=== PATIENT | female | born 1955 | race American Indian/Alaskan Native ===

== ENCOUNTER 2021-01-28 20:36 | Emergency (ER) | payer MEDICARE ==
[2021-01-28 21:24] VITALS: BP 178/72
--- NOTE | 2021-01-28 21:42 | Emergency Department Report ---
ED Altered Mental Status HPI - General Chief Complaint: Altered Mental Status Stated Complaint: MH PUI?: No Time Seen by Provider: 01/28/21 21:37 Source: patient, EMS Mode of arrival: Stretcher Limitations: No Limitations - History of Present Illness Initial Comments: Patient is a 65-year-old female who presents emergency room for mental evaluation. Patient states that her [facility] sent to her to be checked out and evaluated. Patient is alert and oriented x3. Patient answers questions appropriately. Patient denies pain. Patient denies any complaints. Patient denies dysuria. Patient denies fever and chills. Patient denies suicidal and homicidal ideations. Patient denies wanting to hurt anybody. Patient denies hallucinations. Patient states sometimes people there just aggravated but she has never been violent with anybody. Patient denies recent travel. Patient denies recent international travel. Lisset ent denies exposure to the novel coronavirus. Patient denies sick contacts. Patient denies fever and chills. Patient denies cough. Patient denies diarrhea. Patient denies coming in contact with anybody with symptoms of the novel coronavirus. Patient was sent here by EMS from a local penitentiary, [facility]. Report received from EMS. EMS states that per staff at [facility] the patient has been more agitated and forgetful. EMS states that the patient has been refusing meds. EMS states that the patient has not had any violence towards or harmed another patient or staff member. EMS states the patient has been calm the entire time that the patient has been with them. EMS states that the patient's blood sugar was 59 and they gave her oral glucose. EMS states the patient has not eaten today. Patient states that she has an appetite. -: Gradual Consistency of Symptoms: constant Associated Symptoms: denies: chest pain, cough, diaphoresis, fever/chills, headaches, loss of appetite, malaise, nausea/vomiting, rash, seizure, syncope, weakness, foul smelling urine, difficulty walking, diarrhea, incontinence Treatments Prior to Arrival: glucose - Related Data Allergies Allergy/AdvReac Type Severity Reaction Status Date / Time No Known Allergies Allergy Unverified 01/28/21 21:43 ED Review of Systems ROS: Stated complaint: MH Other details as noted in HPI Constitutional: denies: chills, fever Eyes: denies: eye pain, eye discharge, vision change ENT: denies: ear pain, throat pain Respiratory: denies: cough, shortness of breath, wheezing Cardiovascular: denies: chest pain, palpitations Endocrine: no symptoms reported Gastrointestinal: denies: abdominal pain, nausea, diarrhea Genitourinary: denies: urgency, dysuria, discharge Musculoskeletal: denies: back pain, joint swelling, arthralgia Skin: denies: rash, lesions Neurological: denies: headache, weakness, paresthesias Psychiatric: denies: anxiety, depression, auditory hallucinations, visual hallucinations, homicidal thoughts, suicidal thoughts Hematological/Lymphatic: denies: easy bleeding, easy bruising ED Past Medical Hx - Past Medical History Previous Medical History?: Yes Hx Hypertension: Yes - Surgical History Past Surgical History?: Yes - Family History Family history: no significant - Social History Smoking Status: Never Smoker Substance Use Type: None ED Physical Exam - General Limitations: No Limitations General appearance: alert, in no apparent distress - Head Head exam: Present: atraumatic, normocephalic - Eye Eye exam: Present: normal appearance, PERRL Pupils: Present: normal accommodation - ENT ENT exam: Present: mucous membranes moist - Neck Neck exam: Present: normal inspection - Respiratory Respiratory exam: Present: normal lung sounds bilaterally. Absent: respiratory distress, wheezes, rales - Cardiovascular Cardiovascular Exam: Present: regular rate, normal rhythm. Absent: systolic mur mur, diastolic murmur, rubs, gallop - GI/Abdominal GI/Abdominal exam: Present: soft, normal bowel sounds. Absent: distended, tenderness, guarding - Extremities Exam Extremities exam: Present: normal inspection - Back Exam Back exam: Present: normal inspection - Neurological Exam Neurological exam: Present: alert, oriented X3 - Psychiatric Psychiatric exam: Present: normal affect, normal mood. Absent: homicidal ideation, suicidal ideation - Skin Skin exam: Present: warm, dry, intact, normal color. Absent: rash - Assessment Assessment Interval: Baseline - Level of Consciousness 1a. Level of Consciousness: alert/keenly responsive - LOC Questions 1b. LOC Questions: answers both correctly - LOC Command 1c. LOC Commands: performs tasks correctly - Best Gaze 2. Best Gaze: normal - Visual 3. Visual: no visual loss - Facial Palsy 4. Facial Palsy: normal symmetrical movement - Motor Arm 5a. Motor Arm Left: no drift 5b. Motor Arm Right: no drift - Motor Leg 6a. Motor Leg Left: no drift 6b. Motor Leg Right: no drift - Limb Ataxia 7. Limb Ataxia: absent - Sensory 8. Sensory: normal - Best Language 9. Best Language: no aphasia - Dysarthria 10. Dysarthria: normal - Extinction and Inattention 11. Extinction/Inattention: no abnormality - Scoring Total Score: 0 Stroke Severity: No Stroke Symptoms ED Course Vital Signs 01/28/21 21:18 Temperature 98.5 F Pulse Rate 78 Respiratory 18 Rate Blood Pressure 178/72 [Right] O2 Sat by Pulse 100 Oximetry - Reevaluation(s) Reevaluation #1: Patient tolerating p.o. intake. Patient states she is feeling fine. We will recheck the patient's blood sugar. 01/28/21 21:48 Reevaluation #2: Patient states she does not want her sugar checked. Patient states that she does not want anything done. Patient dates she is ready to go back home. Patient has the right to refuse care. Patient is alert and oriented x4. Patient signed AMA form. I discussed risk with patient. Patient voiced understanding of the risk. Even though the patient is leaving against the hospital AGAINST MEDICAL ADVICE, Patient will be given a formal discharge. Patient given discharge instructions. Patient voiced understanding of discharge instructions. 01/28/21 21:51 01/28/21 21:59 - Medical Decision Making Patient is a 65-year-old female that presents emergency room with no complaints. Patient states she was sent here to be evaluated by her [facility]. [facility] called EMS to transport the patient here for mental health evaluation. EMS states the patient has been calm the entire time. EMS states that the penitentiary stated that she has been agitated and refusing meds. On exam, the patient has a normal neuro exam. Patient is alert and oriented x4. Patient refused any work-up. Patient is of sound mind and body. Patient is calm. Patient refused further work-up. I discussed the risk with the patient. Patient voiced understanding of the risk. Patient signed AMA form. Patient denies suicidal homicidal ideation. Patient for a 1013. Patient will be discharged back to her penitentiary. A full work-up was not done because the patient refused. Patient voiced understanding of the risk. AMA form signed. Patient will be sent back to her penitentiary. Given that the patient is leaving his medical advice, a formal discharge was given to the patient. - Differential Diagnosis Mental health evaluation, confusion, altered status, dementia Critical care attestation.: If time is entered above; I have spent that time in minutes in the direct care of this critically ill patient, excluding procedure time. ED Disposition Clinical Impression: Dementia Qualifiers: Dementia type: unspecified type Dementia behavioral disturbance: without behavioral disturbance Qualified Code(s): F03.90 - Unspecified dementia without behavioral disturbance Hypertension Qualifiers: Hypertension type: unspecified Qualified Code(s): I10 - Essential (primary) hypertension Disposition: 07 LEFT AGAINST MEDICAL ADVICE Is pt being admited?: No Does the pt Need Aspirin: No Condition: Stable Instructions: Hypertension (ED), Dementia Caregiver Guide, Preventing Hypertension, Hypertension, Adult, [id number] Additional Instructions: Patient to be sent back to her [facility]. Patient to follow-up with primary care in 2 to 3 days. Patient to increase water. Patient to continue all medications. Patient to return to the ER if condition worsens, changes or new symptoms arise. Time of Disposition: 22:36
== END 2021-01-29 08:00 | disposition left against medical advice (07) ==
LOC: ED 20:36
DX: F03.90 Unspecified dementia, unspecified severity, without behavioral disturbance, psychotic disturbance, mood disturbance, and anxiety (principal); I10 Essential (primary) hypertension; Z98.890 Other specified postprocedural states
CPT/HCPCS: 99283

== ENCOUNTER 2021-10-14 14:32 | Emergency (ER) | payer MEDICARE ==
[2021-10-14] MEDS ORDERED: hydroCHLOROthiazide 25 MG TAB PO ONE (15:36)
--- NOTE | 2021-10-14 15:39 | Emergency Department Report ---
ED General Adult HPI - General Chief complaint: High BP Stated complaint: HTN Time Seen by Provider: 10/14/21 15:17 Source: EMS Mode of arrival: Ambulatory Limitations: No Limitations - History of Present Illness Initial comments: 66-year-old female presented emergency department complaints of elevated blood pressures. Patient has no symptoms of chest pain, headache, back pain, abdominal pain. She has no evidence of stroke although she reports history of previous stroke. She also has history of dementia and schizophrenia. Severity scale (0 -10): 0 - Related Data Previous Rx's Medication Instructions Recorded Last Taken Type hydroCHLOROthiazide [HCTZ] 25 mg PO QDAY 90 Days #90 tablet 10/14/21 Unknown Rx Allergies Allergy/AdvReac Type Severity Reaction Status Date / Time No Known Allergies Allergy Verified 10/14/21 14:35 ED Review of Systems ROS: Stated complaint: HTN Other details as noted in HPI Constitutional: denies: chills, fever Eyes: denies: eye pain, eye discharge, vision change ENT: denies: ear pain, throat pain Respiratory: denies: cough, shortness of breath, wheezing Cardiovascular: denies: chest pain, palpitations Endocrine: no symptoms reported Gastrointestinal: denies: abdominal pain, nausea, diarrhea Genitourinary: denies: urgency, dysuria, discharge Musculoskeletal: denies: back pain, joint swelling, arthralgia Skin: denies: rash, lesions Neurological: denies: headache, weakness, paresthesias Psychiatric: denies: anxiety, depression Hematological/Lymphatic: denies: easy bleeding, easy bruising ED Past Medical Hx - Past Medical History Previous Medical History?: Yes Hx Hypertension: Yes Hx CVA: Yes - Social History Smoking Status: Never Smoker Substance Use Type: None - Medications Home Medications: Home Medications Medication Instructions Recorded Confirmed Last Taken Type hydroCHLOROthiazide [HCTZ] 25 mg PO QDAY 90 Days #90 tablet 10/14/21 Unknown Rx ED Physical Exam - General Limitations: No Limitations General appearance: alert, in no apparent distress - Head Head exam: Present: atraumatic, normocephalic - Eye Eye exam: Present: normal appearance - ENT ENT exam: Present: mucous membranes moist - Neck Neck exam: Present: normal inspection - Respiratory Respiratory exam: Present: normal lung sounds bilaterally. Absent: respiratory distress - Cardiovascular Cardiovascular Exam: Present: regular rate, normal rhythm. Absent: systolic murmur, diastolic murmur, rubs, gallop - GI/Abdominal GI/Abdominal exam: Present: soft, normal bowel sounds - Extremities Exam Extremities exam: Present: normal inspection - Back Exam Back exam: Present: normal inspection - Neurological Exam Neurological exam: Present: alert, oriented X3 - Psychiatric Psychiatric exam: Present: normal affect, normal mood - Skin Skin exam: Present: warm, dry, intact, normal color. Absent: rash ED Course Vital Signs 10/14/21 14:34 Temperature 97.8 F Pulse Rate 92 H Blood Pressure 220/110 [Left] - Reevaluation(s) Reevaluation #1: 10/14/21 Patient's daughter is at bedside. She states that patient previously has been on amlodipine for her elevated blood pressure. She states she follows at the [facility] clinic at [place]. ED Medical Decision Making - Medical Decision Making Patient is a 66-year-old female with history of dementia, schizophrenia, hypertension. She presents to the emergency department with complaint of elevated blood pressures. At this time patient does not have any symptoms. Patient has asymptomatic hypertension. I offered basic labs to the patient and refilling patient's medications. This time patient states that she does not wish to undergo any labs testing. She also does not wish to undergo EKG. Patient is awake alert oriented and able to make her medical decisions at this time. Plan to give oral antihypertensive, provide refill and patient to follow- up with primary care and podiatry. Critical care attestation.: If time is entered above; I have spent that time in minutes in the direct care of this critically ill patient, excluding procedure time. ED Disposition Clinical Impression: HTN (hypertension) Disposition: 01 HOME / SELF CARE / HOMELESS Is pt being admited?: No Does the pt Need Aspirin: No Condition: Stable Instructions: Hypertension, Adult, [id number], Hypertension (ED) Prescriptions: hydroCHLOROthiazide [HCTZ] 25 mg PO QDAY 90 Days #90 tablet Referrals: ANATOLIY FRYE MD [Referring] - 3-5 Days (If you need a new primary care doctor. You should have labs drawn due to being on hydrochlorothiazide.) CHIARA CABALLERO DPM [Staff Physician] - 3-5 Days (Please call for an appointment with podiatry. ) Time of Disposition: 17:00
[2021-10-14 18:55] VITALS: BP 189/100
== END 2021-10-14 17:00 | disposition home or self-care (01) ==
LOC: ED 14:32
DX: I10 Essential (primary) hypertension (principal)
CPT/HCPCS: 99283